=== PATIENT | female | born 1955 | race Two or more races ===

== ENCOUNTER 2017-12-23 07:45 | Day surgery (SDC) | payer OTHER ==
[~2017-12-23] VITALS: Ht 154.9 cm; Wt 97.0 kg
[~2017-12-23 07:45] MED LIST: ALBUAER3 IN; ASPI81TA27 PO; ATOR20TA50 PO; BECL80AE9 IN; HYDR-4683 PO; HYDR25TA4 PO; METF-371 PO; OMEP20TA PO
[2017-12-23] MEDS ORDERED: IODIXANOL 320MG/ML 100ML BTL IV ONE (08:42)
[2017-12-23] MEDS ORDERED: LIDOCAINE 2%HCL (LOCAL ANESTH.) INJ 20ML MDV ONE (08:43)
[2017-12-23] MEDS ORDERED: MIDAZOLAM HCL 1MG/1ML-2 ML VIAL ONE ×2 (08:53→09:26)
[2017-12-23] MEDS ORDERED: ANGIOMAX 250 MG VIAL IV ONE (08:53)
[2017-12-23] MEDS ORDERED: fentaNYL CITRATE 100 MCG/2 ML VL ONE (08:53)
[2017-12-23] MEDS ORDERED: SODIUM CHL 0.9% 0 ML ONE (08:53)
[2017-12-23] MEDS ORDERED: VERAPAMIL 2.5MG/ML INJ 2ML VIAL IV ONE (08:55)
[2017-12-23] MEDS ORDERED: HEPARIN SODIUM (PORCINE) 5000 UNITS/ML 1ML VIAL ONE (09:36)
[2017-12-23] MEDS ORDERED: HYDROmorphone HCL 2 MG/ML VL IV ONE (10:15)
== END 2017-12-23 11:55 | disposition home or self-care (01) ==
LOC: CATH 07:45
PROVIDERS: ATTEND Internal Medicine
DX: R94.39 Abnormal result of other cardiovascular function study (principal); I10 Essential (primary) hypertension; E66.01 Morbid (severe) obesity due to excess calories; E78.5 Hyperlipidemia, unspecified; J44.9 Chronic obstructive pulmonary disease, unspecified; E11.9 Type 2 diabetes mellitus without complications; Z68.41 Body mass index [BMI] 40.0-44.9, adult; Z88.5 Allergy status to narcotic agent; Z87.891 Personal history of nicotine dependence; Z79.1 Long term (current) use of non-steroidal anti-inflammatories (NSAID); Z79.899 Other long term (current) drug therapy; Z79.82 Long term (current) use of aspirin; Z79.84 Long term (current) use of oral hypoglycemic drugs
CPT/HCPCS: 93454; C1769; C1887; C1894; J1170; J1644; J2250; J3010; J7030; Q9967; 99152; 99153

== ENCOUNTER 2023-08-02 06:09 | Emergency (ER) | payer OTHER ==
[~2023-08-02] VITALS: Ht 154.9 cm; Wt 90.0 kg
[~2023-08-02 06:09] MED LIST changes: +ASPI-543 PO; -ASPI81TA27 PO; -HYDR-4683 PO; +HYDR-4833 PO
[2023-08-02] MEDS ORDERED: ALBUTEROL SULF 2.5 MG/0.5ML(0.5%) NEB SOLN NEB ONE (07:15)
[2023-08-02] MEDS ORDERED: methylPREDNISolone SOD SUCC 125 MG/2 ML VL IM ONE (07:15)
[2023-08-02] MEDS ORDERED: IPRATROPIUM BROM 0.5 MG/2.5ML INH SOL NEB ONE (07:15)
[2023-08-02 07:16] VITALS: BP 147/92; PULSE 92; TEMP 98.1
[2023-08-02 07:43] VITALS: RESP 18; O2SAT 95
[2023-08-02] MEDS ORDERED: BENZ200C64 PO ×2 (08:18)
[2023-08-02] MEDS ORDERED: PRED20TA2 PO ×2 (08:18)
[2023-08-04] MEDS ORDERED: BENZ200C64 PO (12:45)
[2023-08-04] MEDS ORDERED: PRED20TA2 PO (12:45)
== END 2023-08-02 08:26 | disposition home or self-care (01) ==
LOC: ER 06:09
DX: J45.909 Unspecified asthma, uncomplicated (principal)
CPT/HCPCS: 71046; 94640; 96372; 99283; J2930; J7644